=== PATIENT | female | born 1965 | race Caucasian/White ===

== ENCOUNTER → 2017-07-31 | Outpatient (CLI) | payer BC ==
[2017-07-31 09:55] LABS: HEMOGLOBIN 13.1 gm/dl (12.3-15.3); RED BLOOD COUNT 4.26 M/UL (4.00-5.10); WHITE BLOOD COUNT 7.1 K/UL (4.5-11.0)
[2017-07-31 11:11] LABS: BUN/CREATININE RATIO 23 (0-10)
== END ==
LOC: LAB 09:03 → OPSV 09:03
PROVIDERS: Emergency Medicine
DX: G44.89 Other headache syndrome (principal); R53.83 Other fatigue; L63.0 Alopecia (capitis) totalis; R25.2 Cramp and spasm
CPT/HCPCS: 36415; 80053; 82607; 84439; 84443; 85027; 85610; 85730